=== PATIENT | male | born 1955 | race African-American/Black ===

== ENCOUNTER 2024-01-08 13:04 | Inpatient (IN) | payer OTHER ==
[2024-01-08 14:19] LABS: HEMATOCRIT 29.9 % (35.4-49); MCH 30.7 pg (25.7-33.7); MCHC 33.5 g/dl (32.0-35.9); MEAN CELL VOLUME 91.6 fl (80-96); MEAN PLT VOLUME 8.4 fl (7.5-11.1); PLATELET COUNT 403 10^3/uL (134-434); RBC 3.27 M/mm3 (4.00-5.60); RDW 13.3 % (11.9-15.9); WHITE BLOOD COUNT 21.1 K/mm3 (4.0-10.0)
[2024-01-08 14:42] LABS: CALCIUM 9.2 mg/dL (8.5-10.1)
[2024-01-08 14:46] LABS: CREATININE 1.6 mg/dL (0.55-1.3)
[2024-01-08 14:47] LABS: BILIRUBIN,TOTAL 0.5 mg/dL (0.2-1); TOT PROT 7.6 g/dl (6.4-8.2)
[2024-01-08 14:54] LABS: ANISOCYTOSIS 0; MACROCYTOSIS 0
[2024-01-08] MEDS ORDERED: ACETAMINOPHEN INJECTION 100 ML IVPB ONE (15:04)
[2024-01-08] MEDS: ACETAMINOPHEN 1000 MG/100 ML BAG IVPB ONE (15:11)
[2024-01-08] MEDS: SODIUM CHLORIDE 0.9% 500 ML INFUS.BAG IV ONE (15:11)
[2024-01-08] MEDS ORDERED: VANCOMYCIN 1 GRAM (PRE-DOCKED) 1,000 MG/250 ML BAG IVPB ONE ×2 (15:17→15:23)
[2024-01-08] MEDS ORDERED: PIPERACILLIN/TAZOB 3.375 GM 3.375 GM/50 ML BAG IVPB ONE (15:17)
[2024-01-08] MEDS: PIPERACILLIN/TAZOB 3.375 GM 3.375 GM in DEXTROSE 5%-WATER - 50 ML IVPB ONE (15:42)
[2024-01-08] MEDS: VANCOMYCIN 1 GM PREMIX - 1 GM/200 ML BAG IVPB ONE (15:53)
[2024-01-08] MEDS: SODIUM CHLORIDE 1,000 ML IV SCH (17:22)
[2024-01-08] MEDS ORDERED: INSULIN ASPART SLIDING SCALE (NOVOLOG) 1 VIAL SQ ONE (17:28)
[2024-01-08] MEDS: INSULIN ASPART SLIDING SCALE (NOVOLOG) 1 VIAL SQ SCH (17:35)
[2024-01-08] MEDS ORDERED: HEPARIN NA (PORCINE) 5,000 UNITS/ML 1ML VIAL ONE (22:13)
[2024-01-08] MEDS ORDERED: CLINDAMYCIN 600MG PREMIX IVPB 600 MG/50 ML BAG IVPB ONE (22:13)
[2024-01-08] MEDS: CLINDAMYCIN 600MG PREMIX IVPB 600 MG/50 ML BAG IVPB SCH (22:22)
[2024-01-08] MEDS: HEPARIN NA (PORCINE) 5,000 UNITS/ML 1ML VIAL SQ SCH (22:23)
[2024-01-08 22:58] VITALS: RESP 18
[2024-01-08 23:10] LABS: POTASSIUM 3.8 mmol/L (3.5-5.1)
[2024-01-08 23:11] LABS: CALCIUM 7.9 mg/dL (8.5-10.1)
[2024-01-08 23:15] LABS: CREATININE 1.2 mg/dL (0.55-1.3)
[2024-01-09 00:18] VITALS: BMI 28.5
[2024-01-09] MEDS ORDERED: ACETAMINOPHEN 500 MG TABLET (FP) PO PRN (00:24)
[2024-01-09] MEDS: traMADol HCL 50 MG TABLET PO PRN (00:37)
[2024-01-09 08:47] LABS: HEMATOCRIT 21.4 % (35.4-49); HEMOGLOBIN 7.1 GM/dL (11.7-16.9); MCH 30.3 pg (25.7-33.7); MEAN CELL VOLUME 91.9 fl (80-96); MEAN PLT VOLUME 7.7 fl (7.5-11.1); PLATELET COUNT 250 10^3/uL (134-434); RBC 2.33 M/mm3 (4.00-5.60); RDW 13.5 % (11.9-15.9); WHITE BLOOD COUNT 12.4 K/mm3 (4.0-10.0)
[2024-01-09 09:04] LABS: POTASSIUM 4.5 mmol/L (3.5-5.1)
[2024-01-09 09:09] LABS: CALCIUM 8.4 mg/dL (8.5-10.1)
[2024-01-09 09:10] LABS: BLOOD UREA NITROGEN 32.4 mg/dL (7-18)
[2024-01-09 09:13] LABS: CREATININE 1.1 mg/dL (0.55-1.3)
[2024-01-09 09:39] LABS: ANISOCYTOSIS 0; MACROCYTOSIS 0
[2024-01-09] MEDS: amLODIPine BESYLATE 10 MG TABLET (FP) PO SCH ×2 (10:19→22:07)
[2024-01-09] MEDS: PIPERACILLIN/TAZOB 3.375 GM 3.375 GM in DEXTROSE 5%-WATER - 50 ML IVPB SCH (14:54)
[2024-01-09 16:32] LABS: HEMATOCRIT 21.3 % (35.4-49); MCH 30.6 pg (25.7-33.7); MCHC 33.1 g/dl (32.0-35.9); MEAN CELL VOLUME 92.5 fl (80-96); MEAN PLT VOLUME 7.7 fl (7.5-11.1); PLATELET COUNT 260 10^3/uL (134-434); RDW 13.6 % (11.9-15.9); WHITE BLOOD COUNT 11.6 K/mm3 (4.0-10.0)
[2024-01-09] MEDS: PANTOPRAZOLE SODIUM 40 MG VIAL IVPUSH SCH (17:51)
[2024-01-09] MEDS: SODIUM CHLORIDE 1,000 ML IV SCH (18:27)
[2024-01-09 18:39] LABS: LACTIC ACID 3.2 mmol/L (0.4-2.0)
[2024-01-10 09:07] LABS: HEMATOCRIT 23.2 % (35.4-49); HEMOGLOBIN 7.9 GM/dL (11.7-16.9); MCH 31.2 pg (25.7-33.7); MCHC 34.2 g/dl (32.0-35.9); MEAN CELL VOLUME 91.3 fl (80-96); PLATELET COUNT 328 10^3/uL (134-434); RBC 2.54 M/mm3 (4.00-5.60); RDW 13.4 % (11.9-15.9); WHITE BLOOD COUNT 11.6 K/mm3 (4.0-10.0)
[2024-01-10 09:32] LABS: POTASSIUM 4.2 mmol/L (3.5-5.1)
[2024-01-10 09:36] LABS: CALCIUM 8.1 mg/dL (8.5-10.1)
[2024-01-10 09:37] LABS: ALBUMIN 2.7 g/dl (3.4-5.0); BLOOD UREA NITROGEN 20.3 mg/dL (7-18)
[2024-01-10 09:40] LABS: CREATININE 1.3 mg/dL (0.55-1.3)
[2024-01-10 09:41] LABS: BILIRUBIN,TOTAL 0.3 mg/dL (0.2-1); TOT PROT 6.9 g/dl (6.4-8.2)
[2024-01-10] MEDS ORDERED: ENOXAPARIN NA (PORCINE) 40 MG/0.4 ML DISP.SYRIN SQ SCH (10:00)
[2024-01-11 09:52] LABS: HEMATOCRIT 21.7 % (35.4-49); HEMOGLOBIN 7.4 GM/dL (11.7-16.9); MCHC 33.9 g/dl (32.0-35.9); MEAN CELL VOLUME 91.4 fl (80-96); MEAN PLT VOLUME 7.9 fl (7.5-11.1); PLATELET COUNT 353 10^3/uL (134-434); RBC 2.38 M/mm3 (4.00-5.60); RDW 13.1 % (11.9-15.9); WHITE BLOOD COUNT 11.6 K/mm3 (4.0-10.0)
[2024-01-11 10:11] LABS: CALCIUM 8.4 mg/dL (8.5-10.1)
[2024-01-11 10:12] LABS: ALBUMIN 2.7 g/dl (3.4-5.0); BLOOD UREA NITROGEN 13.3 mg/dL (7-18); MAGNESIUM 2.3 mg/dL (1.8-2.4)
[2024-01-11 10:15] LABS: PHOSPHOROUS 2.9 mg/dL (2.5-4.9)
[2024-01-11 10:17] LABS: BILIRUBIN,TOTAL 0.4 mg/dL (0.2-1); TOT PROT 6.7 g/dl (6.4-8.2)
[2024-01-11 10:18] LABS: CREATININE 1.3 mg/dL (0.55-1.3)
[2024-01-11 10:20] LABS: ANISOCYTOSIS 0; MACROCYTOSIS 0
[2024-01-11 14:07] VITALS: BP 124/67; PULSE 78; TEMP 98.1
== END 2024-01-11 15:01 | disposition home or self-care (01) | DRG 728 ==
LOC: JER 13:04 → JERFT 13:04 → JERBED 15:29 → J5S 01-09 00:20
PROVIDERS: ADMIT Internal Medicine; ATTEND Internal Medicine
DX: N49.2 Inflammatory disorders of scrotum (principal); L03.315 Cellulitis of perineum; N17.9 Acute kidney failure, unspecified; K92.2 Gastrointestinal hemorrhage, unspecified; I10 Essential (primary) hypertension; E11.9 Type 2 diabetes mellitus without complications
CPT/HCPCS: 36415; 76870-TC; 80048; 80053; 82272; 82962; 83605; 83735; 84100; 85025; 85027; 86850; 86900; 86901; 87040; 87070; 87186; 87205; 93005; 93010; 99285-25; J0131

== ENCOUNTER 2024-12-18 06:57 | Day surgery (SDC) | payer OTHER ==
[2024-12-11 12:48] VITALS: BMI 26.9
[2024-12-18] MEDS ORDERED: LIDOCAINE HCL/PF 2% SDV 5ML VIAL ONE (08:20)
[2024-12-18] MEDS ORDERED: MIDAZOLAM HCL 2 MG/2 ML SINGLE DOSE VIAL ONE (08:22)
[2024-12-18] MEDS ORDERED: PROPOFOL 40 ML ONE (08:22)
[2024-12-18] MEDS ORDERED: DEXAMETHASONE SOD PHOSPHATE 4 MG/1 ML VIAL ONE (08:38)
[2024-12-18] MEDS ORDERED: ONDANSETRON 4 MG/2 ML VIAL ONE (08:38)
[2024-12-18] MEDS ORDERED: KETOROLAC TROMETHAMINE 30 MG/1 ML VIAL ONE (08:38)
[2024-12-18] MEDS ORDERED: ceFAZolin SODIUM 1 GM VIAL ONE (08:38)
[2024-12-18] MEDS ORDERED: PROMETHAZINE HCL 25 MG/1 ML VIAL IVPB PRN (09:02)
[2024-12-18] MEDS ORDERED: oxyCODONE HCL 5 MG TABLET PO PRN ×2 (09:02)
[2024-12-18] MEDS ORDERED: ONDANSETRON 4 MG/2 ML VIAL IVPUSH PRN (09:02)
[2024-12-18] MEDS ORDERED: LACTATED RINGERS SOLUTION 1,000 ML IV SCH (09:15)
[2024-12-18] MEDS ORDERED: ACETAMINOPHEN INJECTION 100 ML ONE (09:33)
[2024-12-18] MEDS: ACETAMINOPHEN 1000 MG/100 ML BAG IVPB ONE (09:35)
[2024-12-18 10:11] VITALS: RESP 16; TEMP 97.2
[2024-12-18 11:54] VITALS: BP 111/70; PULSE 60
== END 2024-12-18 11:45 | disposition home or self-care (01) ==
LOC: FASU 06:57
PROVIDERS: ATTEND Urology
PROC: 0VB03ZX Excision of Prostate, Percutaneous Approach, Diagnostic (ICD-10-PCS; principal; 2024-12-18 09:03)
DX: C61 Malignant neoplasm of prostate (principal); R97.20 Elevated prostate specific antigen [PSA]
CPT/HCPCS: 82962; 88305-TC; 94760